=== PATIENT | female | born 1950 | race Caucasian/White ===

== ENCOUNTER 2019-09-22 13:04 | Emergency (ER) | payer MEDICARE, BC ==
[2019-09-22] MEDS ORDERED: Sodium Chloride 0.9% 10 ML Syringe FLUSH PRN (13:30)
--- NOTE | 2019-09-22 13:43 | EDM.PDOC ---
ED HPI GENERAL MEDICAL PROBLEM - General Chief Complaint: Cardiovascular Problem Stated Complaint: HEART FLUTTERING Time Seen by Provider: 09/22/19 13:18 Source of Information: Reports: Patient History Limitations: Reports: No Limitations - History of Present Illness INITIAL COMMENTS - FREE TEXT/NARRATIVE: Patient is a 69-year-old female who was sent to the ER from the walk-in clinic with complaints of chest palpitations. She states that her symptoms began upon waking this morning and continued throughout the morning. Symptoms were present when she arrived at the clinic, however upon arrival to ER the symptoms have resolved. She describes the sensation as a fluttering in her chest. If she takes a deep breath she is able to resolve the symptoms briefly but they did return. She had no shortness of breath or chest pain associated with this. She was not diaphoretic or dizzy. She states that she has had episodes like these quite frequently during the past, however they do not generally last this long. She has no history of A. fib or SC. She is on blood pressure medications , however she is not sure what medications she is on. She does have a history of hypothyroidism for which she takes medications. - Related Data Allergies Allergy/AdvReac Type Severity Reaction Status Date / Time azithromycin Allergy Severe Swelling Verified 09/22/19 13:21 diphenhydramine Allergy Severe Anxiety Verified 09/22/19 13:21 [From Benadryl] Past Medical History HEENT History: Reports: Cataract Cardiovascular History: Reports: High Cholesterol, Hypertension [employer] History: Reports: Oncologic (Cancer) History: Reports: Leukemia Other Oncologic History: bone marrow transplant - Past Surgical History HEENT Surgical History: Reports: Tonsillectomy Female Surgical History: Reports: Tubal Ligation Social & Family History - Tobacco Use Smoking Status *Q: Never Smoker Second Hand Smoke Exposure: No - Caffeine Use Caffeine Use: Reports: None - Recreational Drug Use Recreational Drug Use: No ED ROS GENERAL - Review of Systems Review Of Systems: See Below Constitutional: Reports: No Symptoms. Denies: Fever, Chills, Weakness HEENT: Reports: No Symptoms Respiratory: Reports: No Symptoms. Denies: Shortness of Breath, Cough Cardiovascular: Reports: Palpitations. Denies: Chest Pain, Dyspnea on Exertion , Edema, Lightheadedness, Syncope Endocrine: Reports: No Symptoms GI/Abdominal: Reports: No Symptoms : Reports: No Symptoms Musculoskeletal: Reports: No Symptoms Skin: Reports: No Symptoms Neurological: Reports: No Symptoms. Denies: Dizziness, Headache Psychiatric: Reports: No Symptoms Hematologic/Lymphatic: Reports: No Symptoms Immunologic: Reports: No Symptoms ED EXAM, GENERAL - Physical Exam Exam: See Below Exam Limited By: No Limitations General Appearance: Alert, WD/WN, No Apparent Distress Respiratory/Chest: No Respiratory Distress, Lungs Clear, Normal Breath Sounds, No Accessory Muscle Use, Chest Non-Tender Cardiovascular: Normal Peripheral Pulses, Regular Rate, Rhythm, No Edema, No Gallop, No JVD, No Murmur, No Rub GI/Abdominal: Normal Bowel Sounds, Soft, Non-Tender, No Organomegaly, No Distention, No Abnormal Bruit, No Mass Neurological: Alert, Oriented, CN II-XII Intact, Normal Cognition, Normal Gait, Normal Reflexes, No Motor/Sensory Deficits Psychiatric: Normal Affect, Normal Mood Skin Exam: Warm, Dry, Intact, Normal Color, No Rash EKG INTERPRETATION EKG Date: 09/22/19 Time: 13:45 Rhythm: NSR Rate (Beats/Min): 85 [place]: Normal P-Wave: Present (in V3. Not visible in other leads.) QRS: Normal ST-T: Normal QT: Normal Comparison: NA - No Prior EKG EKG Interpretation Comments: P wave visible in V3 P-wave not visible in other leads narrow complex regular rhythm, rate 85 presumed NSR EKG interpreted by Dr. Emerson Garcia MD. Course - Vital Signs Last Recorded V/S: Last Vital Signs Temp 98.1 F 09/22/19 13:16 Pulse 95 09/22/19 13:16 Resp 16 09/22/19 13:16 BP 168/85 H 09/22/19 13:16 Pulse Ox 99 09/22/19 13:16 - Orders/Labs/Meds Orders: Active Orders 24 hr Category Date Time Status EKG Documentation Completion [RC] STAT Care 09/22/19 13:29 Active Holter Monitor 48 Hours [RC] .PRN Care 09/22/19 15:37 Ordered Peripheral IV Care [RC] . DIRECTED Care 09/22/19 13:30 Active Chest 2V [CR] Stat Exams 09/22/19 13:30 Taken Sodium Chloride 0.9% [Saline Flush] Med 09/22/19 13:30 Active 10 ml FLUSH ASDIRECTED PRN Peripheral IV Insertion Adult [OM.PC] Stat Oth 09/22/19 13:30 Ordered Medication Orders Sodium Chloride (Saline Flush) 10 ml FLUSH ASDIRECTED PRN PRN Reason: Keep Vein Open Labs: Laboratory Tests 09/22/19 09/22/19 09/22/19 Range/Units 13:45 13:45 14:00 WBC 5.93 (3.98-10.04) K/mm3 RBC 3.76 L (3.98-5.22) M/mm3 Hgb 12.3 (11.2-15.7) gm/dl Hct 37.0 (34.1-44.9) % MCV 98.4 H (79.4-94.8) fl MCH 32.7 H (25.6-32.2) pg MCHC 33.2 (32.2-35.5) g/dl RDW Std Deviation 44.2 (36.4-46.3) fL Plt Count 146 L (182-369) K/mm3 MPV 9.8 (9.4-12.3) fl Neut % (Auto) 68.7 (34.0-71.1) % Lymph % (Auto) 18.5 L (19.3-51.7) % [place] % (Auto) 8.3 (4.7-12.5) % Eos % (Auto) 3.9 (0.7-5.8) Baso % (Auto) 0.3 (0.1-1.2) % Neut # (Auto) 4.07 (1.56-6.13) K/mm3 Lymph # (Auto) 1.10 L (1.18-3.74) K/mm3 [place] # (Auto) 0.49 H (0.24-0.36) K/mm3 Eos # (Auto) 0.23 (0.04-0.36) K/mm3 Baso # (Auto) 0.02 (0.01-0.08) K/mm3 Manual Slide Review Normal smear Sodium 133 L (136-145) mEq/L Potassium 3.7 (3.5-5.1) mEq/L Chloride 100 (98-107) mEq/L Carbon Dioxide 21 (21-32) mEq/L Anion Gap 15.7 H (5-15) BUN 27 H (7-18) mg/dL Creatinine 1.2 H (0.55-1.02) mg/dL Est Cr Clr Drug Dosing 39.81 mL/min Estimated GFR (MDRD) 45 (>60) mL/min BUN/Creatinine Ratio 22.5 H (14-18) Glucose 117 H (80-115) mg/dL Calcium 9.2 (8.5-10.1) mg/dL Total Bilirubin 0.5 (0.2-1.0) mg/dL AST 16 (15-37) U/L ALT 23 (14-59) U/L Alkaline Phosphatase 116 (46-116) U/L Troponin I < 0.017 (0.00-0.056) ng/mL Total Protein 7.3 (6.4-8.2) g/dl Albumin 3.6 (3.4-5.0) g/dl Globulin 3.7 gm/dL Albumin/Globulin Ratio 1.0 (1-2) Free T4 1.46 (0.76-1.46) ng/dL TSH 3rd Generation 1.301 (0.358-3.74) uIU/mL Urine Color Yellow (Yellow) Urine Appearance Clear (Clear) Urine pH 6.5 (5.0-8.0) Ur Specific [place] 1.015 (1.005-1.030) Urine Protein 2+ H (Negative) Urine Glucose (UA) Negative (Negative) Urine Ketones Negative (Negative) Urine Occult Blood Trace-lysed H (Negative) Urine Nitrite Negative (Negative) Urine Bilirubin Negative (Negative) Urine Urobilinogen 0.2 (0.2-1.0) Ur Leukocyte Esterase Negative (Negative) Urine RBC 0-5 (0-5) /hpf Urine WBC 0-5 (0-5) /hpf Ur Squamous Epith Cells 0-5 (0-5) /hpf Urine Bacteria Occasional (FEW) /hpf Urine Mucus Not seen (FEW) /hpf Meds: Medications Generic Name Dose Route Start Last Admin Trade Name Freq PRN Reason Stop Dose Admin Sodium Chloride 10 ml 09/22/19 13:30 Saline Flush FLUSH ASDIRECTED PRN Keep Vein Open - Re-Assessments/Exams Free Text/Narrative Re-Assessment/Exam: 09/22/19 15:41 Hematology was grossly unremarkable. Sodium was slightly low at 133, anion gap slightly elevated at 15.7, BUN 27, creatinine 1.2. Cardiac enzymes were negative. Thyroid was normal. Urinalysis was negative for any signs of infection. Discussed with the patient that she should try to slightly increase her fluid intake while incorporating electrolytes with beverages such as Gatorade or Powerade. Chest x-ray was normal. EKG was normal. No ectopy was noted while in the emergency department on court recording monitor. She had no further episodes of palpitations while in the emergency department. We will send her home on a 48-hour Holter monitor with instructions to follow-up with her primary care provider Departure - Departure Time of Disposition: 15:41 Disposition: Home, Self-Care 01 Condition: Good Clinical Impression: Palpitations Instructions: Palpitations, [id number] Referrals: Pernell Enrique MD [Primary Care Provider] - Forms: ED Department Discharge Additional Instructions: You were seen in the emergency department today for an occurrence of palpitations at home. Work-up included blood work, urinalysis, EKG of your heart, and a chest x-ray. These were found to be overall normal. As we discussed, it would be beneficial for you to slightly increase your fluid intake while incorporating electrolytes with drinks such as Gatorade, Powerade, or propel. You have been sent home on a 48-hour Holter monitor. Return this on Tuesday. Recommend that you call to schedule follow-up appointment with your primary care provider for either late next week or early the following week. If you should experience any new or worsening symptoms of concern, please do not hesitate to return to the emergency department. Sepsis Event Note - Evaluation Sepsis Screening Result: No Definite Risk - Focused Exam Vital Signs: Vital Signs Temp Pulse Resp BP Pulse Ox 09/22/19 13:16 98.1 F 95 16 168/85 H 99 Date Exam was Performed: 09/22/19 Time Exam was Performed: 15:39 - My Orders Last 24 Hours: My Active Orders 09/22/19 13:29 EKG Documentation Completion [RC] STAT 09/22/19 13:30 Peripheral IV Care [RC] . DIRECTED Chest 2V [CR] Stat Sodium Chloride 0.9% [Saline Flush] 10 ml FLUSH ASDIRECTED PRN Peripheral IV Insertion Adult [OM.PC] Stat 09/22/19 15:37 Holter Monitor 48 Hours [RC] .PRN - Assessment/Plan Last 24 Hours: My Active Orders 09/22/19 13:29 EKG Documentation Completion [RC] STAT 09/22/19 13:30 Peripheral IV Care [RC] . DIRECTED Chest 2V [CR] Stat Sodium Chloride 0.9% [Saline Flush] 10 ml FLUSH ASDIRECTED PRN Peripheral IV Insertion Adult [OM.PC] Stat 09/22/19 15:37 Holter Monitor 48 Hours [RC] .PRN
--- NOTE | 2019-09-23 10:27 | CR ---
Chest: 2 views of the chest were obtained. Comparison: No prior chest imaging is available. Heart size and mediastinum are normal. Lungs are clear with no acute parenchymal change. Slight degenerative change is scattered within the spine. Impression: 1. Nothing acute is seen on 2 view chest x-ray. Diagnostic code #2 This report was dictated in MDT
== END 2019-09-22 16:05 | disposition home or self-care (01) ==
LOC: JD.ED 13:04
DX: R00.2 Palpitations (principal); E78.00 Pure hypercholesterolemia, unspecified; I10 Essential (primary) hypertension; Z88.8 Allergy status to other drugs, medicaments and biological substances
CPT/HCPCS: 36415; 71046; 71046-26; 80053; 81001; 84439; 84443; 84484; 85025; 93005; 93010; 93225; 93226; 99283; 99285-25

== ENCOUNTER 2022-08-23 08:20 | Day surgery (SDC) | payer MEDICARE, BC ==
[~2022-08-23 08:20] MED LIST: Lactated Ringers 1,000 ML IV SCH; Lidocaine 1%/Sod Bicarbonate in NS 8.4% 1 ML Syringe IDERM PRN; Sodium Chloride 0.9% 10 ML Syringe FLUSH PRN; Sodium Chloride 0.9% 10 ML Syringe FLUSH SCH
[2022-08-23] MEDS ORDERED: Midazolam 1 MG/ML 2 ML SDV ONE (09:21)
[2022-08-23] MEDS ORDERED: fentaNYL 100 MCG/2 ML SDV ONE (09:21)
[2022-08-23] MEDS ORDERED: Lidocaine 1% 2 ML ONE (09:21)
[2022-08-23] MEDS ORDERED: Propofol 200 MG/20 ML SDV ONE ×2 (09:21→10:11)
[2022-08-23] MEDS ORDERED: Ondansetron 4 MG/2 ML SDV IVPUSH PRN (09:43)
== END 2022-08-23 11:35 | disposition home or self-care (01) ==
LOC: JD.SDS 08:20
PROVIDERS: ATTEND Surgery
DX: Z12.11 Encounter for screening for malignant neoplasm of colon (principal); D12.7 Benign neoplasm of rectosigmoid junction; D12.2 Benign neoplasm of ascending colon; D12.4 Benign neoplasm of descending colon; D12.0 Benign neoplasm of cecum; D12.5 Benign neoplasm of sigmoid colon; D12.3 Benign neoplasm of transverse colon; K63.5 Polyp of colon; K62.1 Rectal polyp; E03.9 Hypothyroidism, unspecified; I12.9 Hypertensive chronic kidney disease with stage 1 through stage 4 chronic kidney disease, or unspecified chronic kidney disease; N18.30 Chronic kidney disease, stage 3 unspecified; E78.5 Hyperlipidemia, unspecified; E11.9 Type 2 diabetes mellitus without complications; F41.9 Anxiety disorder, unspecified; F32.A Depression, unspecified; D46.9 Myelodysplastic syndrome, unspecified; K21.00 Gastro-esophageal reflux disease with esophagitis, without bleeding; Z90.89 Acquired absence of other organs; Z79.84 Long term (current) use of oral hypoglycemic drugs; Z79.4 Long term (current) use of insulin; Z79.899 Other long term (current) drug therapy; Z88.1 Allergy status to other antibiotic agents; Z88.8 Allergy status to other drugs, medicaments and biological substances; Z86.16 Personal history of COVID-19
CPT/HCPCS: 45380; 82947; 88305; J2250; J2704; J3010; J7120; 00811; 99100; J3490

== ENCOUNTER 2023-04-25 17:57 | Inpatient (IN) | payer MEDICARE, BC ==
[2023-04-25] MEDS ORDERED: Sodium Chloride 0.9% 10 ML Syringe FLUSH PRN (18:47)
[2023-04-25 19:16] LABS: EOSINOPHILS PERCENT AUTO 2.4 % (0.0-6.0); HEMATOCRIT 22.3 % (37.0-47.0); HEMOGLOBIN 7.7 gm/dl (12.0-16.0); IMMATURE GRAN ABSOLUTE AUTO 0.01 K/mm3 (0.00-0.05); IMMATURE GRAN PERCENT AUTO 2.4 % (0.0-0.4); LYMPHOCYTES ABSOLUTE AUTO 0.3 K/mm3 (1.0-4.8); LYMPHOCYTES PERCENT AUTO 64.3 % (24.0-44.0); MEAN CORPUSCULAR HEMOGLOBIN 33.8 pg (28.0-32.0); MEAN CORPUSCULAR HGB CONC 34.5 g/dl (32.0-36.0); MEAN CORPUSCULAR VOLUME 97.8 fl (83.0-99.0); MEAN PLATELET VOLUME 11.3 fl (9.4-12.3); MONOCYTES PERCENT AUTO 2.4 % (0.0-8.0); NEUTROPHILS ABSOLUTE AUTO 0.1 K/mm3 (1.8-7.7); NEUTROPHILS PERCENT AUTO 28.5 % (41.0-71.0); RED BLOOD CELL COUNT 2.28 M/mm3 (4.10-5.30)
[2023-04-25 19:20] LABS: WHITE BLOOD CELL COUNT,WBC 0.42 K/mm3 (3.9-11.3)
[2023-04-25 19:21] LABS: PLATELET COUNT,PLT 15 K/mm3 (150-400)
[2023-04-25 19:53] LABS: SLIDE REVIEW ABNORMAL SMEAR
[2023-04-25 19:54] LABS: APPEARANCE,URINE CLEAR (Clear); BILIRUBIN,URINE NEGATIVE (Negative); COLOR,URINE YELLOW (Yellow); GLUCOSE,URINE 2+ (Negative); KETONES,URINE NEGATIVE (Negative); LEUKOCYTE ESTERASE,URINE NEGATIVE (Negative); NITRITE,URINE NEGATIVE (Negative); OCCULT BLOOD,URINE 1+ (Negative); PROTEIN,URINE 1+ (Negative)
[2023-04-25 19:57] LABS: A/G RATIO 0.9 (1-2); ALANINE AMINOTRANSFERASE,ALT 19 U/L (14-59); ALBUMIN 3.2 g/dl (3.4-5.0); ALKALINE PHOSPHATASE 86 U/L (46-116); ANION GAP 14.4 (5-15); ASPARTATE AMNIOTRANSFERASE,AST 12 U/L (15-37); BILIRUBIN TOTAL 0.8 mg/dL (0.2-1.0); BLOOD UREA NITROGEN,BUN 36 mg/dL (7-18); CALCIUM 9.1 mg/dL (8.5-10.1); CARBON DIOXIDE,CO2 22 mEq/L (21-32); CHLORIDE,CL 100 mEq/L (98-107); CREATININE 1.8 mg/dL (0.55-1.02); ESTIMATED GFR 30 mL/min (>60); GLUCOSE RANDOM 198 mg/dL (70-99); PROTEIN TOTAL,TP 6.7 g/dl (6.4-8.2); SODIUM,NA 132 mEq/L (136-145)
[2023-04-25] MEDS ORDERED: cefTRIAXone 2 GM in Sodium Chloride 0.9% 100 ML IV ONE (19:58)
[2023-04-25 20:01] LABS: CORONAVIRUS COVID-19 NAA POSITIVE (NEGATIVE); INFLUENZA A NAA NEGATIVE (NEGATIVE); RESPIRATORY SYNCYTIAL VIR NAA NEGATIVE (NEGATIVE)
[2023-04-25 20:04] LABS: POTASSIUM,K 4.4 mEq/L (3.5-5.1)
[2023-04-25 20:08] LABS: BACTERIA,URINE RARE /hpf (FEW); MUCUS,URINE NOT SEEN /hpf (FEW); RBC,URINE 0-5 /hpf (0-5); SQUAMOUS EPITHELIAL CELLS,UR NOT SEEN /hpf (0-5); WBC,URINE NOT SEEN /hpf (0-5)
[2023-04-25] MEDS: Acetaminophen 325 MG Tab PO ONE (20:44)
[2023-04-25] MEDS ORDERED: Nirmatrelvir/Ritonavir 150 MG/100 MG Dose Pack PO SCH (21:00)
[2023-04-25] MEDS: Cefepime 2 GM in Sodium Chloride 0.9% 50 ML IV SCH (21:22)
[2023-04-25] MEDS ORDERED: Acetaminophen 325 MG Tab PO PRN (23:21)
[2023-04-26 05:42] LABS: HEMATOCRIT 20.5 % (37.0-47.0); MEAN CORPUSCULAR HEMOGLOBIN 32.7 pg (28.0-32.0); MEAN CORPUSCULAR HGB CONC 34.6 g/dl (32.0-36.0); MEAN CORPUSCULAR VOLUME 94.5 fl (83.0-99.0); RED BLOOD CELL COUNT 2.17 M/mm3 (4.10-5.30)
[2023-04-26 05:54] LABS: WHITE BLOOD CELL COUNT,WBC 0.44 K/mm3 (3.9-11.3)
[2023-04-26 05:55] LABS: HEMOGLOBIN 7.1 gm/dl (12.0-16.0); PLATELET COUNT,PLT 8 K/mm3 (150-400)
[2023-04-26 06:09] LABS: A/G RATIO 0.8 (1-2); ALBUMIN 2.8 g/dl (3.4-5.0); ANION GAP 16.1 (5-15); BILIRUBIN TOTAL 0.6 mg/dL (0.2-1.0); BUN/CREATININE RATIO 18.8 (14-18); CALCIUM 8.9 mg/dL (8.5-10.1); CREATININE 1.6 mg/dL (0.55-1.02); EST CRCL DRUG DOSING (CG) 26.29 mL/min; POTASSIUM,K 4.1 mEq/L (3.5-5.1); PROTEIN TOTAL,TP 6.3 g/dl (6.4-8.2)
[2023-04-26] MEDS ORDERED: ESTRADIOL TOP SCH (06:30)
[2023-04-26] MEDS: Cefepime 2 GM in Sodium Chloride 0.9% 50 ML IV SCH ×2 (08:56→22:20)
[2023-04-26] MEDS: Verapamil 120 MG Cap.ER PO SCH (08:56)
[2023-04-26] MEDS: Allopurinol 100 MG Tab PO SCH (08:57)
[2023-04-26] MEDS: Losartan 50 MG Tab PO SCH (08:58)
[2023-04-26] MEDS: Fluticasone NASAL Spray 16 GM Bottle NASBOTH SCH (08:58)
[2023-04-26] MEDS: Cholecalciferol (Vitamin D3) 25 MCG Tab PO SCH (08:58)
[2023-04-26] MEDS: Empagliflozin 10 MG Tab PO SCH (08:58)
[2023-04-26] MEDS: Sodium Bicarbonate 650 MG Tab PO SCH ×2 (08:58→22:19)
[2023-04-26] MEDS: Timolol Maleate 0.5% Ophth Soln 5 ML Bottle EYERT SCH (08:59)
[2023-04-26] MEDS ORDERED: Nirmatrelvir/Ritonavir 150 MG/100 MG Dose Pack PO SCH (09:00)
[2023-04-26] MEDS ORDERED: atorvaSTATin 40 MG Tab PO SCH (09:00)
[2023-04-26] MEDS ORDERED: Non-Formulary Medication 1 Each (Triamcinolone Acetonide [Nasacort] 10.8 ML Spray) NAS SCH (09:00)
[2023-04-26] MEDS ORDERED: Famotidine 20 MG/2 ML SDV IVPUSH ONE (17:50)
[2023-04-26] MEDS ORDERED: methylPREDNISolone Sodium Succinate 125 MG/2 ML SDV IVPUSH ONE (17:52)
[2023-04-26] MEDS: Acetaminophen 325 MG Tab PO ONE (19:24)
[2023-04-26] MEDS ORDERED: Sodium Chloride 0.9% 100 ML ONE (20:39)
[2023-04-26] MEDS ORDERED: Sodium Chloride 0.9% 100 ML IV SCH (20:45)
[2023-04-26] MEDS: Sodium Chloride 0.9% 100 ML IV SCH (21:24)
[2023-04-27] MEDS: Sodium Chloride 0.9% 100 ML IV SCH (00:29)
[2023-04-27] MEDS: Cefepime 2 GM in Sodium Chloride 0.9% 50 ML IV SCH (00:30)
[2023-04-27] MEDS ORDERED: Acetaminophen 325 MG Tab PO ONE ×2 (02:30→11:45)
[2023-04-27] MEDS ORDERED: Famotidine 20 MG/2 ML SDV IVPUSH ONE (02:30)
[2023-04-27] MEDS ORDERED: methylPREDNISolone Sodium Succinate 125 MG/2 ML SDV IVPUSH ONE ×2 (02:30→11:45)
[2023-04-27] MEDS ORDERED: Sodium Chloride 0.9% 250 ML ONE ×2 (03:13→14:09)
[2023-04-27] MEDS: Levothyroxine 112 MCG Tab PO SCH (07:01)
[2023-04-27] MEDS: Levothyroxine 25 MCG Tab PO SCH (07:01)
[2023-04-27] MEDS: Allopurinol 100 MG Tab PO SCH (08:18)
[2023-04-27] MEDS: Cholecalciferol (Vitamin D3) 25 MCG Tab PO SCH (08:19)
[2023-04-27] MEDS: Verapamil 120 MG Cap.ER PO SCH (08:19)
[2023-04-27] MEDS: Empagliflozin 10 MG Tab PO SCH (08:20)
[2023-04-27] MEDS: Losartan 50 MG Tab PO SCH (08:20)
[2023-04-27] MEDS: Timolol Maleate 0.5% Ophth Soln 5 ML Bottle EYERT SCH (08:21)
[2023-04-27] MEDS: Fluticasone NASAL Spray 16 GM Bottle NASBOTH SCH (08:21)
[2023-04-27] MEDS: Sodium Bicarbonate 650 MG Tab PO SCH ×2 (08:21→20:24)
[2023-04-27] MEDS ORDERED: Furosemide 20 MG/2 ML VIAL IVPUSH ONE (08:39)
[2023-04-27] MEDS ORDERED: Cefepime 2 GM in Sodium Chloride 0.9% 50 ML IV SCH (12:00)
[2023-04-27] MEDS ORDERED: Insulin Regular, Human 100 Units/ML 3 ML Vial SUBCUT ONE (12:26)
[2023-04-27] MEDS: Insulin Regular, Human 100 Units/ML 3 ML Vial SUBCUT SCH ×3 (12:36→18:12)
[2023-04-27] MEDS ORDERED: Polyethylene Glycol 3350 Powder 17 GM Packet PO PRN (15:17)
[2023-04-27 16:44] LABS: HEMATOCRIT 34.5 % (37.0-47.0); HEMOGLOBIN 12.2 gm/dl (12.0-16.0); LYMPHOCYTES ABSOLUTE AUTO 0.2 K/mm3 (1.0-4.8); LYMPHOCYTES PERCENT AUTO 55.6 % (24.0-44.0); MEAN CORPUSCULAR HEMOGLOBIN 30.5 pg (28.0-32.0); MEAN CORPUSCULAR HGB CONC 35.4 g/dl (32.0-36.0); MEAN CORPUSCULAR VOLUME 86.3 fl (83.0-99.0); MEAN PLATELET VOLUME 9.7 fl (9.4-12.3); NEUTROPHILS ABSOLUTE AUTO 0.1 K/mm3 (1.8-7.7); NEUTROPHILS PERCENT AUTO 44.4 % (41.0-71.0); PLATELET COUNT,PLT 185 K/mm3 (150-400)
[2023-04-27 16:48] LABS: WHITE BLOOD CELL COUNT,WBC 0.27 K/mm3 (3.9-11.3)
[2023-04-27 17:06] LABS: A/G RATIO 0.7 (1-2); ALBUMIN 3.4 g/dl (3.4-5.0); ANION GAP 17.8 (5-15); BILIRUBIN TOTAL 1.4 mg/dL (0.2-1.0); BUN/CREATININE RATIO 19.1 (14-18); CALCIUM 9.9 mg/dL (8.5-10.1); CREATININE 2.2 mg/dL (0.55-1.02); EST CRCL DRUG DOSING (CG) 19.12 mL/min; POTASSIUM,K 3.8 mEq/L (3.5-5.1); PROTEIN TOTAL,TP 8.1 g/dl (6.4-8.2)
[2023-04-27 18:14] LABS: SLIDE REVIEW ABNORMAL SMEAR
[2023-04-27] MEDS: Cefepime 1 GM in Sodium Chloride 0.9% 50 ML IV SCH (22:18)
[2023-04-28 05:41] LABS: HEMATOCRIT 34.3 % (37.0-47.0); HEMOGLOBIN 12.2 gm/dl (12.0-16.0); IMMATURE GRAN ABSOLUTE AUTO 0.03 K/mm3 (0.00-0.05); IMMATURE GRAN PERCENT AUTO 8.6 % (0.0-0.4); LYMPHOCYTES ABSOLUTE AUTO 0.2 K/mm3 (1.0-4.8); LYMPHOCYTES PERCENT AUTO 57.1 % (24.0-44.0); MEAN CORPUSCULAR HEMOGLOBIN 30.7 pg (28.0-32.0); MEAN CORPUSCULAR HGB CONC 35.6 g/dl (32.0-36.0); MEAN CORPUSCULAR VOLUME 86.2 fl (83.0-99.0); MEAN PLATELET VOLUME 9.6 fl (9.4-12.3); MONOCYTES PERCENT AUTO 2.9 % (0.0-8.0); NEUTROPHILS ABSOLUTE AUTO 0.1 K/mm3 (1.8-7.7); NEUTROPHILS PERCENT AUTO 31.4 % (41.0-71.0); PLATELET COUNT,PLT 164 K/mm3 (150-400); RED BLOOD CELL COUNT 3.98 M/mm3 (4.10-5.30)
[2023-04-28 05:53] LABS: A/G RATIO 0.8 (1-2); ALBUMIN 3.3 g/dl (3.4-5.0); ANION GAP 18.8 (5-15); BILIRUBIN TOTAL 1.1 mg/dL (0.2-1.0); BUN/CREATININE RATIO 27.6 (14-18); CALCIUM 9.6 mg/dL (8.5-10.1); CREATININE 1.7 mg/dL (0.55-1.02); EST CRCL DRUG DOSING (CG) 24.74 mL/min; POTASSIUM,K 3.8 mEq/L (3.5-5.1); PROTEIN TOTAL,TP 7.6 g/dl (6.4-8.2)
[2023-04-28 06:27] LABS: WHITE BLOOD CELL COUNT,WBC 0.35 K/mm3 (3.9-11.3)
[2023-04-28] MEDS: Levothyroxine 25 MCG Tab PO SCH (06:46)
[2023-04-28] MEDS: Levothyroxine 112 MCG Tab PO SCH (06:46)
[2023-04-28 07:48] LABS: SLIDE REVIEW ABNORMAL SMEAR
[2023-04-28] MEDS: Timolol Maleate 0.5% Ophth Soln 5 ML Bottle EYERT SCH (08:27)
[2023-04-28] MEDS: Fluticasone NASAL Spray 16 GM Bottle NASBOTH SCH (08:27)
[2023-04-28] MEDS: Verapamil 120 MG Cap.ER PO SCH (08:28)
[2023-04-28] MEDS: Sodium Bicarbonate 650 MG Tab PO SCH (08:28)
[2023-04-28] MEDS: Allopurinol 100 MG Tab PO SCH (08:34)
[2023-04-28] MEDS: Losartan 50 MG Tab PO SCH (08:34)
[2023-04-28] MEDS: Cholecalciferol (Vitamin D3) 25 MCG Tab PO SCH (08:34)
[2023-04-28] MEDS: Insulin Regular, Human 100 Units/ML 3 ML Vial SUBCUT SCH ×2 (08:40→13:10)
[2023-04-28] MEDS: Cefepime 1 GM in Sodium Chloride 0.9% 50 ML IV SCH (11:40)
== END 2023-04-28 13:27 | disposition home or self-care (01) | DRG 808 ==
LOC: JD.ED 17:57 → JD.MS 21:04
PROVIDERS: ADMIT Internal Medicine; ATTEND Internal Medicine
PROC: 30233N1 Transfusion of Nonautologous Red Blood Cells into Peripheral Vein, Percutaneous Approach (ICD-10-PCS; 2023-04-26)
PROC: 30233R1 Transfusion of Nonautologous Platelets into Peripheral Vein, Percutaneous Approach (ICD-10-PCS; principal; 2023-04-27)
PROC: 30233N1 Transfusion of Nonautologous Red Blood Cells into Peripheral Vein, Percutaneous Approach (ICD-10-PCS; 2023-04-27)
DX: D70.1 Agranulocytosis secondary to cancer chemotherapy (principal); U07.1 COVID-19; N39.0 Urinary tract infection, site not specified; Z94.81 Bone marrow transplant status; D61.818 Other pancytopenia; D46.9 Myelodysplastic syndrome, unspecified; T45.1X5A Adverse effect of antineoplastic and immunosuppressive drugs, initial encounter; K21.9 Gastro-esophageal reflux disease without esophagitis; D70.9 Neutropenia, unspecified; R50.81 Fever presenting with conditions classified elsewhere; E78.00 Pure hypercholesterolemia, unspecified; F41.9 Anxiety disorder, unspecified; F32.A Depression, unspecified; I12.9 Hypertensive chronic kidney disease with stage 1 through stage 4 chronic kidney disease, or unspecified chronic kidney disease; N18.30 Chronic kidney disease, stage 3 unspecified; E11.22 Type 2 diabetes mellitus with diabetic chronic kidney disease; D69.6 Thrombocytopenia, unspecified; E03.9 Hypothyroidism, unspecified; Z88.1 Allergy status to other antibiotic agents; Z88.8 Allergy status to other drugs, medicaments and biological substances; Z79.4 Long term (current) use of insulin; Z90.89 Acquired absence of other organs; Z98.51 Tubal ligation status; Z79.899 Other long term (current) drug therapy
CPT/HCPCS: 0241U; 36415; 36430; 71045; 80053; 81001; 82947; 83605; 85025; 85027; 86850; 86900; 86901; 86922; 87040; 87086; 96365; 99285-25; A9270-GY; C1758; J0692; J0696; J1815-GY; J1940; J2930; J3490; J7050; P9016; P9034; P9040

== ENCOUNTER 2023-05-22 18:48 | Inpatient (IN) | payer MEDICARE, BC ==
[2023-05-22] MEDS ORDERED: Metoclopramide 10 MG/2 ML SDV IVPUSH ONE (19:06)
[2023-05-22] MEDS ORDERED: Acetaminophen 325 MG Tab PO ONE (19:10)
[2023-05-22] MEDS ORDERED: Sodium Chloride 0.9% 1,000 ML IV SCH (19:15)
[2023-05-22] MEDS ORDERED: cefTRIAXone 2 GM in Sodium Chloride 0.9% 100 ML IV ONE (19:32)
[2023-05-22 20:10] LABS: INR 0.99; PROTHROMBIN TIME 10.6 SECONDS (9.7-12.0)
[2023-05-22 20:12] LABS: PTT,PARTIAL THROMBOPLSTIN TIME 22.1 SECONDS (21.7-31.4)
[2023-05-22 20:17] LABS: MEAN CORPUSCULAR HGB CONC 34.8 g/dl (32.0-36.0); MEAN CORPUSCULAR VOLUME 89.1 fl (83.0-99.0); MEAN PLATELET VOLUME 9.9 fl (9.4-12.3); RED BLOOD CELL COUNT 2.58 M/mm3 (4.10-5.30)
[2023-05-22 20:21] LABS: PLATELET COUNT,PLT 22 K/mm3 (150-400)
[2023-05-22 20:23] LABS: A/G RATIO 0.8 (1-2); ALBUMIN 3.1 g/dl (3.4-5.0); ANION GAP 16.7 (5-15); BILIRUBIN TOTAL 1.1 mg/dL (0.2-1.0); BUN/CREATININE RATIO 24.7 (14-18); C-REACTIVE PROTEIN 4.4 mg/dL (<1.0); CALCIUM 8.9 mg/dL (8.5-10.1); CREATININE 1.7 mg/dL (0.55-1.02); EST CRCL DRUG DOSING (CG) 24.74 mL/min; MAGNESIUM 1.3 mg/dL (1.8-2.4); POTASSIUM,K 3.7 mEq/L (3.5-5.1); PROTEIN TOTAL,TP 6.9 g/dl (6.4-8.2); TSH 0.598 uIU/mL (0.358-3.74)
[2023-05-22] MEDS ORDERED: Morphine 2 MG/ML SYRINGE IVPUSH PRN (20:25)
[2023-05-22] MEDS ORDERED: Acetaminophen/HYDROcodone 325-5 MG Tab PO PRN (20:25)
[2023-05-22] MEDS ORDERED: Ondansetron 4 MG/2 ML SDV IV PRN (20:25)
[2023-05-22 20:31] LABS: HEMOGLOBIN A1C 9.1 %
[2023-05-22] MEDS ORDERED: Piperacillin/Tazobactam 4.5 GM in Sodium Chloride 0.9% 100 ML IV ONE (20:45)
[2023-05-22] MEDS ORDERED: Magnesium Sulfate/Water 4 GM in Premix Bag 1 BAG IV ONE (20:49)
[2023-05-22 20:50] LABS: APPEARANCE,URINE CLEAR (Clear); BILIRUBIN,URINE NEGATIVE (Negative); COLOR,URINE YELLOW (Yellow); GLUCOSE,URINE NEGATIVE (Negative); KETONES,URINE NEGATIVE (Negative); LEUKOCYTE ESTERASE,URINE NEGATIVE (Negative); NITRITE,URINE NEGATIVE (Negative); OCCULT BLOOD,URINE TRACE-INTACT (Negative); PROTEIN,URINE 2+ (Negative); UROBILINOGEN,URINE 0.2 (0.2-1.0)
[2023-05-22 21:05] LABS: BAND PERCENT MAN 0 % (0-10); BASOPHILS PERCENT MAN 0 (0.1-1.2); EOSINOPHILS PERCENT MAN 0 % (0.7-5.8); LYMPHOCYTES % ATYPICAL MANUAL 0 %; LYMPHOCYTES PERCENT MAN 60 % (20-40); MONOCYTES PERCENT MAN 20 % (2-10)
[2023-05-22 21:06] LABS: OVALOCYTES 1+ SLIGHT; PLATELET COUNT ESTIMATE DECREASED; POIKILOCYTOSIS 1+ SLIGHT
[2023-05-22 21:13] LABS: SQUAMOUS EPITHELIAL CELLS,UR 0-5 /hpf (0-5); WBC,URINE 0-5 /hpf (0-5)
[2023-05-22 21:14] LABS: BACTERIA,URINE FEW /hpf (FEW); MUCUS,URINE FEW /hpf (FEW)
[2023-05-22 22:15] LABS: CORONAVIRUS COVID-19 NAA POSITIVE (NEGATIVE); INFLUENZA A NAA NEGATIVE (NEGATIVE); RESPIRATORY SYNCYTIAL VIR NAA NEGATIVE (NEGATIVE)
[2023-05-23] MEDS ORDERED: Magnesium Sulfate/Water 4 GM in Premix Bag 1 BAG IV ONE (00:30)
[2023-05-23] MEDS: Sodium Chloride 0.9% 1,000 ML IV SCH ×2 (00:43→15:01)
[2023-05-23] MEDS: Piperacillin/Tazobactam 4.5 GM in Sodium Chloride 0.9% 100 ML IV SCH ×3 (03:47→18:33)
[2023-05-23 05:48] LABS: ANION GAP 17.8 (5-15); BUN/CREATININE RATIO 24.3 (14-18); CALCIUM 8.4 mg/dL (8.5-10.1); CREATININE 1.4 mg/dL (0.55-1.02); EST CRCL DRUG DOSING (CG) 30.05 mL/min; POTASSIUM,K 3.8 mEq/L (3.5-5.1)
[2023-05-23 05:59] LABS: HEMATOCRIT 21.4 % (37.0-47.0); HEMOGLOBIN 7.5 gm/dl (12.0-16.0); LYMPHOCYTES ABSOLUTE AUTO 0.1 K/mm3 (1.0-4.8); LYMPHOCYTES PERCENT AUTO 92.3 % (24.0-44.0); MEAN PLATELET VOLUME 9.8 fl (9.4-12.3); MONOCYTES PERCENT AUTO 7.7 % (0.0-8.0)
[2023-05-23] MEDS: Acetaminophen 325 MG Tab PO PRN ×2 (06:01→12:13)
[2023-05-23 06:08] LABS: WHITE BLOOD CELL COUNT,WBC 0.13 K/mm3 (3.9-11.3)
[2023-05-23 06:09] LABS: MEAN CORPUSCULAR VOLUME 85.6 fl (83.0-99.0); PLATELET COUNT,PLT 13 K/mm3 (150-400)
[2023-05-23] MEDS: Insulin Lispro 100 Unit/ML 3 ML KwikPen SUBCUT SCH ×4 (06:26→21:15)
[2023-05-23 07:35] LABS: SLIDE REVIEW ABNORMAL SMEAR
[2023-05-23] MEDS ORDERED: Acetaminophen 325 MG Tab PO ONE (09:00)
[2023-05-23] MEDS ORDERED: methylPREDNISolone Sodium Succinate 40 MG/1 ML SDV IVPUSH ONE (09:00)
[2023-05-23] MEDS: atorvaSTATin 40 MG Tab PO SCH (13:23)
[2023-05-23] MEDS: Levothyroxine 112 MCG Tab PO SCH (13:24)
[2023-05-23] MEDS: Sodium Bicarbonate 650 MG Tab PO SCH ×2 (13:24→21:14)
[2023-05-23] MEDS: Levothyroxine 25 MCG Tab PO SCH (13:24)
[2023-05-23] MEDS: Cholecalciferol (Vitamin D3) 25 MCG Tab PO SCH (13:24)
[2023-05-23] MEDS ORDERED: Sodium Chloride 0.9% 250 ML IV SCH (14:15)
[2023-05-23] MEDS ORDERED: Famotidine 10 MG Tab PO ONE (14:46)
[2023-05-23] MEDS ORDERED: REMDESIVIR 200 MG in Sodium Chloride 0.9% 250 ML IV ONE (16:00)
[2023-05-23] MEDS: Sodium Chloride 0.9% 10 ML Syringe IV SCH (17:36)
[2023-05-23] MEDS ORDERED: Sodium Chloride 0.9% 100 ML ONE (18:26)
[2023-05-23] MEDS: Insulin Glargine,Human Rec. Analog 100 Units/ML 3 ML Pen SUBCUT SCH (21:18)
[2023-05-24] MEDS: Piperacillin/Tazobactam 4.5 GM in Sodium Chloride 0.9% 100 ML IV SCH ×3 (03:19→18:01)
[2023-05-24] MEDS: Sodium Chloride 0.9% 1,000 ML IV SCH ×2 (03:23→16:24)
[2023-05-24] MEDS: Levothyroxine 112 MCG Tab PO SCH (06:31)
[2023-05-24] MEDS: Levothyroxine 25 MCG Tab PO SCH (06:31)
[2023-05-24 07:32] LABS: LYMPHOCYTES ABSOLUTE AUTO 0.1 K/mm3 (1.0-4.8); MEAN CORPUSCULAR HEMOGLOBIN 30.5 pg (28.0-32.0); MEAN CORPUSCULAR HGB CONC 34.5 g/dl (32.0-36.0); MEAN CORPUSCULAR VOLUME 88.5 fl (83.0-99.0); MEAN PLATELET VOLUME 10.6 fl (9.4-12.3); PLATELET COUNT,PLT 31 K/mm3 (150-400); RED BLOOD CELL COUNT 2.26 M/mm3 (4.10-5.30)
[2023-05-24 07:39] LABS: WHITE BLOOD CELL COUNT,WBC 0.08 K/mm3 (3.9-11.3)
[2023-05-24 07:40] LABS: HEMOGLOBIN 6.9 gm/dl (12.0-16.0)
[2023-05-24 07:41] LABS: BUN/CREATININE RATIO 17.1 (14-18); CALCIUM 8.3 mg/dL (8.5-10.1); CREATININE 1.4 mg/dL (0.55-1.02); EST CRCL DRUG DOSING (CG) 30.05 mL/min
[2023-05-24] MEDS: atorvaSTATin 40 MG Tab PO SCH (08:44)
[2023-05-24 08:45] LABS: SLIDE REVIEW ABNORMAL SMEAR
[2023-05-24] MEDS: Sodium Bicarbonate 650 MG Tab PO SCH ×2 (08:45→20:03)
[2023-05-24] MEDS: Cholecalciferol (Vitamin D3) 25 MCG Tab PO SCH (08:46)
[2023-05-24] MEDS: Insulin Lispro 100 Unit/ML 3 ML KwikPen SUBCUT SCH ×6 (09:07→21:02)
[2023-05-24] MEDS: REMDESIVIR 100 MG in Sodium Chloride 0.9% 250 ML IV SCH (15:13)
[2023-05-24] MEDS: Sodium Chloride 0.9% 10 ML Syringe IV SCH (17:01)
[2023-05-24] MEDS ORDERED: Aluminum Hydroxide/Magnesium Hydroxide/Simethicone Susp 30 ML Cup PO PRN (19:47)
[2023-05-24] MEDS: Loperamide 2 MG Cap PO PRN (20:03)
[2023-05-24] MEDS: Insulin Glargine,Human Rec. Analog 100 Units/ML 3 ML Pen SUBCUT SCH (20:58)
[2023-05-24] MEDS: Acetaminophen 325 MG Tab PO PRN (21:05)
[2023-05-24] MEDS ORDERED: Labetalol 100 MG/20 ML MDV IVPUSH PRN ×2 (21:56→22:39)
[2023-05-24 22:17] LABS: HEMATOCRIT 21.7 % (37.0-47.0); HEMOGLOBIN 7.7 gm/dl (12.0-16.0); LYMPHOCYTES ABSOLUTE AUTO 0.3 K/mm3 (1.0-4.8); LYMPHOCYTES PERCENT AUTO 96.2 % (24.0-44.0); MEAN CORPUSCULAR HEMOGLOBIN 30.6 pg (28.0-32.0); MEAN CORPUSCULAR HGB CONC 35.5 g/dl (32.0-36.0); MEAN CORPUSCULAR VOLUME 86.1 fl (83.0-99.0); MEAN PLATELET VOLUME 9.6 fl (9.4-12.3); NEUTROPHILS PERCENT AUTO 3.8 % (41.0-71.0); RED BLOOD CELL COUNT 2.52 M/mm3 (4.10-5.30)
[2023-05-24 22:30] LABS: PLATELET COUNT,PLT 23 K/mm3 (150-400); WHITE BLOOD CELL COUNT,WBC 0.26 K/mm3 (3.9-11.3)
[2023-05-24 23:19] LABS: SLIDE REVIEW ABNORMAL SMEAR
[2023-05-25] MEDS: Piperacillin/Tazobactam 4.5 GM in Sodium Chloride 0.9% 100 ML IV SCH ×2 (03:09→10:14)
[2023-05-25 05:45] LABS: ANION GAP 14.3 (5-15); BUN/CREATININE RATIO 18.5 (14-18); CALCIUM 8.4 mg/dL (8.5-10.1); CREATININE 1.3 mg/dL (0.55-1.02); EST CRCL DRUG DOSING (CG) 32.36 mL/min; POTASSIUM,K 3.3 mEq/L (3.5-5.1)
[2023-05-25 05:53] LABS: HEMATOCRIT 22.3 % (37.0-47.0); LYMPHOCYTES ABSOLUTE AUTO 0.3 K/mm3 (1.0-4.8); LYMPHOCYTES PERCENT AUTO 96.8 % (24.0-44.0); MEAN CORPUSCULAR HEMOGLOBIN 30.3 pg (28.0-32.0); MEAN CORPUSCULAR HGB CONC 35.9 g/dl (32.0-36.0); MEAN CORPUSCULAR VOLUME 84.5 fl (83.0-99.0); MEAN PLATELET VOLUME 11.7 fl (9.4-12.3); NEUTROPHILS PERCENT AUTO 3.2 % (41.0-71.0); RED BLOOD CELL COUNT 2.64 M/mm3 (4.10-5.30)
[2023-05-25 06:02] LABS: WHITE BLOOD CELL COUNT,WBC 0.31 K/mm3 (3.9-11.3)
[2023-05-25 06:03] LABS: PLATELET COUNT,PLT 22 K/mm3 (150-400)
[2023-05-25] MEDS: Sodium Chloride 0.9% 1,000 ML IV SCH (06:31)
[2023-05-25] MEDS: Levothyroxine 112 MCG Tab PO SCH (06:32)
[2023-05-25] MEDS: Levothyroxine 25 MCG Tab PO SCH (06:32)
[2023-05-25 06:35] LABS: SLIDE REVIEW ABNORMAL SMEAR
[2023-05-25] MEDS: Insulin Lispro 100 Unit/ML 3 ML KwikPen SUBCUT SCH ×7 (07:11→21:23)
[2023-05-25] MEDS: atorvaSTATin 40 MG Tab PO SCH (08:09)
[2023-05-25] MEDS: Sodium Bicarbonate 650 MG Tab PO SCH ×2 (08:09→21:21)
[2023-05-25] MEDS: Cholecalciferol (Vitamin D3) 25 MCG Tab PO SCH (08:09)
[2023-05-25] MEDS: Loperamide 2 MG Cap PO PRN ×2 (10:14→21:21)
[2023-05-25] MEDS ORDERED: cefTRIAXone 2 GM Vial ONE (12:33)
[2023-05-25] MEDS: Timolol Maleate 0.5% Ophth Soln 5 ML Bottle EYERT SCH (13:01)
[2023-05-25] MEDS: Torsemide 20 MG Tab PO SCH (13:01)
[2023-05-25] MEDS: cefTRIAXone 2 GM in Sodium Chloride 0.9% 100 ML IV SCH (13:01)
[2023-05-25] MEDS: Losartan 50 MG Tab PO SCH (13:04)
[2023-05-25] MEDS: REMDESIVIR 100 MG in Sodium Chloride 0.9% 250 ML IV SCH (15:16)
[2023-05-25] MEDS: Sodium Chloride 0.9% 10 ML Syringe IV SCH (16:20)
[2023-05-25] MEDS: Insulin Glargine,Human Rec. Analog 100 Units/ML 3 ML Pen SUBCUT SCH (21:22)
[2023-05-26 04:59] LABS: CALCIUM 8.3 mg/dL (8.5-10.1); CREATININE 1.2 mg/dL (0.55-1.02); EST CRCL DRUG DOSING (CG) 35.05 mL/min
[2023-05-26 06:08] LABS: HEMATOCRIT 23.4 % (37.0-47.0); HEMOGLOBIN 8.2 gm/dl (12.0-16.0); LYMPHOCYTES ABSOLUTE AUTO 0.5 K/mm3 (1.0-4.8); LYMPHOCYTES PERCENT AUTO 96.3 % (24.0-44.0); MEAN CORPUSCULAR HEMOGLOBIN 30.3 pg (28.0-32.0); MEAN CORPUSCULAR VOLUME 86.3 fl (83.0-99.0); MEAN PLATELET VOLUME 10.7 fl (9.4-12.3); MONOCYTES PERCENT AUTO 3.7 % (0.0-8.0); RED BLOOD CELL COUNT 2.71 M/mm3 (4.10-5.30)
[2023-05-26 06:40] LABS: PLATELET COUNT,PLT 15 K/mm3 (150-400); WHITE BLOOD CELL COUNT,WBC 0.54 K/mm3 (3.9-11.3)
[2023-05-26] MEDS: Levothyroxine 25 MCG Tab PO SCH (06:57)
[2023-05-26] MEDS: Levothyroxine 112 MCG Tab PO SCH (06:57)
[2023-05-26] MEDS: Insulin Lispro 100 Unit/ML 3 ML KwikPen SUBCUT SCH ×7 (07:17→21:26)
[2023-05-26 07:33] LABS: SLIDE REVIEW ABNORMAL SMEAR
[2023-05-26] MEDS: Timolol Maleate 0.5% Ophth Soln 5 ML Bottle EYERT SCH (07:59)
[2023-05-26] MEDS: atorvaSTATin 40 MG Tab PO SCH (08:00)
[2023-05-26] MEDS: Cholecalciferol (Vitamin D3) 25 MCG Tab PO SCH (08:00)
[2023-05-26] MEDS: Torsemide 20 MG Tab PO SCH (08:01)
[2023-05-26] MEDS: Losartan 50 MG Tab PO SCH (08:01)
[2023-05-26] MEDS: Sodium Bicarbonate 650 MG Tab PO SCH ×2 (08:06→21:14)
[2023-05-26] MEDS ORDERED: Potassium Chloride 10 MEQ Tab.ER PO ONE ×2 (09:31→12:00)
[2023-05-26] MEDS ORDERED: Potassium Chloride 20 MEQ Tab.ER PO ONE ×2 (09:31→12:00)
[2023-05-26] MEDS ORDERED: Potassium Chloride 10 MEQ in Premix Bag 1 BAG IV ONE (09:32)
[2023-05-26] MEDS ORDERED: Sodium Chloride 0.9% 100 ML IV SCH (12:00)
[2023-05-26] MEDS: cefTRIAXone 2 GM in Sodium Chloride 0.9% 100 ML IV SCH (13:29)
[2023-05-26] MEDS: Loperamide 2 MG Cap PO PRN (21:14)
[2023-05-26] MEDS: Insulin Glargine,Human Rec. Analog 100 Units/ML 3 ML Pen SUBCUT SCH (21:21)
[2023-05-26] MEDS: methylPREDNISolone Sodium Succinate 40 MG/1 ML SDV IVPUSH ONE (23:10)
[2023-05-27] MEDS: Levothyroxine 112 MCG Tab PO SCH (08:00)
[2023-05-27] MEDS: Insulin Lispro 100 Unit/ML 3 ML KwikPen SUBCUT SCH ×7 (08:01→20:53)
[2023-05-27] MEDS: Sodium Bicarbonate 650 MG Tab PO SCH ×2 (08:03→20:54)
[2023-05-27] MEDS: Torsemide 20 MG Tab PO SCH (08:03)
[2023-05-27] MEDS: atorvaSTATin 40 MG Tab PO SCH (08:03)
[2023-05-27] MEDS: Cholecalciferol (Vitamin D3) 25 MCG Tab PO SCH (08:03)
[2023-05-27] MEDS: Levothyroxine 25 MCG Tab PO SCH (08:03)
[2023-05-27] MEDS: Timolol Maleate 0.5% Ophth Soln 5 ML Bottle EYERT SCH (08:04)
[2023-05-27] MEDS: Losartan 50 MG Tab PO SCH (08:04)
[2023-05-27 10:00] LABS: HEMATOCRIT 21.9 % (37.0-47.0); HEMOGLOBIN 7.6 gm/dl (12.0-16.0); LYMPHOCYTES ABSOLUTE AUTO 0.5 K/mm3 (1.0-4.8); LYMPHOCYTES PERCENT AUTO 92.7 % (24.0-44.0); MEAN CORPUSCULAR HEMOGLOBIN 30.3 pg (28.0-32.0); MEAN CORPUSCULAR HGB CONC 34.7 g/dl (32.0-36.0); MEAN CORPUSCULAR VOLUME 87.3 fl (83.0-99.0); MEAN PLATELET VOLUME 9.9 fl (9.4-12.3); MONOCYTES PERCENT AUTO 5.5 % (0.0-8.0); NEUTROPHILS PERCENT AUTO 1.8 % (41.0-71.0); RED BLOOD CELL COUNT 2.51 M/mm3 (4.10-5.30)
[2023-05-27 10:13] LABS: PLATELET COUNT,PLT 7 K/mm3 (150-400); WHITE BLOOD CELL COUNT,WBC 0.55 K/mm3 (3.9-11.3)
[2023-05-27 10:18] LABS: BUN/CREATININE RATIO 21.4 (14-18); CALCIUM 8.5 mg/dL (8.5-10.1); CREATININE 1.4 mg/dL (0.55-1.02); EST CRCL DRUG DOSING (CG) 30.05 mL/min
[2023-05-27] MEDS: Loperamide 2 MG Cap PO PRN ×2 (10:44→20:54)
[2023-05-27 10:46] LABS: SLIDE REVIEW ABNORMAL SMEAR
[2023-05-27] MEDS ORDERED: methylPREDNISolone Sodium Succinate 40 MG/1 ML SDV IVPUSH ONE (11:30)
[2023-05-27] MEDS ORDERED: Famotidine 20 MG Tab PO ONE (11:30)
[2023-05-27] MEDS: Acetaminophen 325 MG Tab PO PRN (11:34)
[2023-05-27] MEDS: methylPREDNISolone Sodium Succinate 40 MG/1 ML SDV IVPUSH ONE (11:34)
[2023-05-27] MEDS: cefTRIAXone 2 GM in Sodium Chloride 0.9% 100 ML IV SCH (13:26)
[2023-05-27] MEDS: Insulin Glargine,Human Rec. Analog 100 Units/ML 3 ML Pen SUBCUT SCH (20:53)
[2023-05-28 05:36] LABS: HEMATOCRIT 21.6 % (37.0-47.0); LYMPHOCYTES ABSOLUTE AUTO 0.8 K/mm3 (1.0-4.8); LYMPHOCYTES PERCENT AUTO 94.1 % (24.0-44.0); MEAN CORPUSCULAR HEMOGLOBIN 29.2 pg (28.0-32.0); MEAN CORPUSCULAR HGB CONC 34.3 g/dl (32.0-36.0); MEAN CORPUSCULAR VOLUME 85.4 fl (83.0-99.0); MEAN PLATELET VOLUME 11.1 fl (9.4-12.3); MONOCYTES PERCENT AUTO 4.7 % (0.0-8.0); NEUTROPHILS PERCENT AUTO 1.2 % (41.0-71.0); PLATELET COUNT,PLT 37 K/mm3 (150-400); RED BLOOD CELL COUNT 2.53 M/mm3 (4.10-5.30)
[2023-05-28] MEDS: Levothyroxine 25 MCG Tab PO SCH (05:44)
[2023-05-28] MEDS: Levothyroxine 112 MCG Tab PO SCH (05:45)
[2023-05-28] MEDS: Loperamide 2 MG Cap PO PRN (05:47)
[2023-05-28 05:54] LABS: HEMOGLOBIN 7.4 gm/dl (12.0-16.0); WHITE BLOOD CELL COUNT,WBC 0.85 K/mm3 (3.9-11.3)
[2023-05-28 05:58] LABS: ANION GAP 14.5 (5-15); CALCIUM 8.8 mg/dL (8.5-10.1); CREATININE 1.3 mg/dL (0.55-1.02); EST CRCL DRUG DOSING (CG) 31.88 mL/min; POTASSIUM,K 3.5 mEq/L (3.5-5.1)
[2023-05-28 06:28] LABS: SLIDE REVIEW ABNORMAL SMEAR
[2023-05-28] MEDS: Torsemide 20 MG Tab PO SCH (08:06)
[2023-05-28] MEDS: Sodium Bicarbonate 650 MG Tab PO SCH ×2 (08:08→20:20)
[2023-05-28] MEDS: atorvaSTATin 40 MG Tab PO SCH (08:08)
[2023-05-28] MEDS: Losartan 50 MG Tab PO SCH (08:08)
[2023-05-28] MEDS: Cholecalciferol (Vitamin D3) 25 MCG Tab PO SCH (08:09)
[2023-05-28] MEDS: Timolol Maleate 0.5% Ophth Soln 5 ML Bottle EYERT SCH (08:10)
[2023-05-28] MEDS: Insulin Lispro 100 Unit/ML 3 ML KwikPen SUBCUT SCH ×7 (08:11→20:21)
[2023-05-28] MEDS: Hydrochlorothiazide 12.5 MG Cap PO SCH (10:10)
[2023-05-28] MEDS: cefTRIAXone 2 GM in Sodium Chloride 0.9% 100 ML IV SCH (12:48)
[2023-05-28] MEDS: Insulin Glargine,Human Rec. Analog 100 Units/ML 3 ML Pen SUBCUT SCH (20:22)
[2023-05-29 05:34] LABS: HEMATOCRIT 21.7 % (37.0-47.0); HEMOGLOBIN 7.5 gm/dl (12.0-16.0); LYMPHOCYTES ABSOLUTE AUTO 0.8 K/mm3 (1.0-4.8); LYMPHOCYTES PERCENT AUTO 96.2 % (24.0-44.0); MEAN CORPUSCULAR HEMOGLOBIN 30.5 pg (28.0-32.0); MEAN CORPUSCULAR HGB CONC 34.6 g/dl (32.0-36.0); MEAN CORPUSCULAR VOLUME 88.2 fl (83.0-99.0); MEAN PLATELET VOLUME 10.9 fl (9.4-12.3); MONOCYTES PERCENT AUTO 2.6 % (0.0-8.0); NEUTROPHILS PERCENT AUTO 1.2 % (41.0-71.0); RED BLOOD CELL COUNT 2.46 M/mm3 (4.10-5.30)
[2023-05-29 05:41] LABS: PLATELET COUNT,PLT 21 K/mm3 (150-400); WHITE BLOOD CELL COUNT,WBC 0.78 K/mm3 (3.9-11.3)
[2023-05-29 05:43] LABS: ANION GAP 13.1 (5-15); BUN/CREATININE RATIO 25.7 (14-18); CALCIUM 8.7 mg/dL (8.5-10.1); CREATININE 1.4 mg/dL (0.55-1.02); EST CRCL DRUG DOSING (CG) 29.6 mL/min; POTASSIUM,K 4.1 mEq/L (3.5-5.1)
[2023-05-29 06:17] LABS: SLIDE REVIEW ABNORMAL SMEAR
[2023-05-29] MEDS: Levothyroxine 25 MCG Tab PO SCH (06:25)
[2023-05-29] MEDS: Levothyroxine 112 MCG Tab PO SCH (06:25)
[2023-05-29] MEDS: Insulin Lispro 100 Unit/ML 3 ML KwikPen SUBCUT SCH ×7 (08:18→21:00)
[2023-05-29] MEDS: Sodium Bicarbonate 650 MG Tab PO SCH ×2 (08:19→20:59)
[2023-05-29] MEDS: Torsemide 20 MG Tab PO SCH (08:19)
[2023-05-29] MEDS: Losartan 50 MG Tab PO SCH (08:20)
[2023-05-29] MEDS: atorvaSTATin 40 MG Tab PO SCH (08:21)
[2023-05-29] MEDS: Cholecalciferol (Vitamin D3) 25 MCG Tab PO SCH (08:21)
[2023-05-29] MEDS: Timolol Maleate 0.5% Ophth Soln 5 ML Bottle EYERT SCH (08:22)
[2023-05-29] MEDS: Hydrochlorothiazide 12.5 MG Cap PO SCH (08:22)
[2023-05-29] MEDS: cefTRIAXone 2 GM in Sodium Chloride 0.9% 100 ML IV SCH (13:54)
[2023-05-29] MEDS: Loperamide 2 MG Cap PO PRN ×2 (14:30→21:15)
[2023-05-29] MEDS: Insulin Glargine,Human Rec. Analog 100 Units/ML 3 ML Pen SUBCUT SCH (20:59)
[2023-05-30 05:32] LABS: HEMATOCRIT 21.2 % (37.0-47.0); LYMPHOCYTES ABSOLUTE AUTO 0.9 K/mm3 (1.0-4.8); LYMPHOCYTES PERCENT AUTO 97.8 % (24.0-44.0); MEAN CORPUSCULAR HEMOGLOBIN 30.3 pg (28.0-32.0); MEAN CORPUSCULAR HGB CONC 34.4 g/dl (32.0-36.0); MONOCYTES PERCENT AUTO 1.1 % (0.0-8.0); NEUTROPHILS PERCENT AUTO 1.1 % (41.0-71.0); RED BLOOD CELL COUNT 2.41 M/mm3 (4.10-5.30)
[2023-05-30 05:39] LABS: BUN/CREATININE RATIO 23.6 (14-18); CALCIUM 8.5 mg/dL (8.5-10.1); CREATININE 1.4 mg/dL (0.55-1.02); EST CRCL DRUG DOSING (CG) 29.6 mL/min
[2023-05-30 05:48] LABS: WHITE BLOOD CELL COUNT,WBC 0.92 K/mm3 (3.9-11.3)
[2023-05-30 05:49] LABS: HEMOGLOBIN 7.3 gm/dl (12.0-16.0); PLATELET COUNT,PLT 15 K/mm3 (150-400)
[2023-05-30] MEDS: Levothyroxine 25 MCG Tab PO SCH (06:12)
[2023-05-30] MEDS: Levothyroxine 112 MCG Tab PO SCH (06:12)
[2023-05-30 06:18] LABS: SLIDE REVIEW ABNORMAL SMEAR
[2023-05-30] MEDS: Insulin Lispro 100 Unit/ML 3 ML KwikPen SUBCUT SCH ×4 (07:47→11:34)
[2023-05-30] MEDS: Timolol Maleate 0.5% Ophth Soln 5 ML Bottle EYERT SCH (08:41)
[2023-05-30] MEDS: Torsemide 20 MG Tab PO SCH (08:41)
[2023-05-30] MEDS: Hydrochlorothiazide 12.5 MG Cap PO SCH (08:42)
[2023-05-30] MEDS: atorvaSTATin 40 MG Tab PO SCH (08:42)
[2023-05-30] MEDS: Losartan 50 MG Tab PO SCH (08:42)
[2023-05-30] MEDS: Sodium Bicarbonate 650 MG Tab PO SCH (08:42)
[2023-05-30] MEDS: Cholecalciferol (Vitamin D3) 25 MCG Tab PO SCH (08:43)
[2023-05-31] MEDS ORDERED: Hydrochlorothiazide 25 MG Tab PO SCH (09:00)
== END 2023-05-30 14:00 | disposition home or self-care (01) | DRG 808 ==
LOC: JD.ED 18:48 → JD.MS 20:31
PROVIDERS: ADMIT Student in an Organized Health Care Education/Training Program; ATTEND Student in an Organized Health Care Education/Training Program
PROC: 8E0ZXY6 Isolation (ICD-10-PCS; principal; 2023-05-22)
PROC: XW033E5 Introduction of Remdesivir Anti-infective into Peripheral Vein, Percutaneous Approach, New Technology Group 5 (ICD-10-PCS; 2023-05-22)
PROC: 30233R1 Transfusion of Nonautologous Platelets into Peripheral Vein, Percutaneous Approach (ICD-10-PCS; 2023-05-23)
PROC: 30233N1 Transfusion of Nonautologous Red Blood Cells into Peripheral Vein, Percutaneous Approach (ICD-10-PCS; 2023-05-25)
PROC: 30233R1 Transfusion of Nonautologous Platelets into Peripheral Vein, Percutaneous Approach (ICD-10-PCS; 2023-05-27)
DX: D70.1 Agranulocytosis secondary to cancer chemotherapy (principal); R55 Syncope and collapse; R50.9 Fever, unspecified; J18.9 Pneumonia, unspecified organism; U07.1 COVID-19; Z51.12 Encounter for antineoplastic immunotherapy; D84.9 Immunodeficiency, unspecified; I11.0 Hypertensive heart disease with heart failure; I50.9 Heart failure, unspecified; Z94.81 Bone marrow transplant status; C95.91 Leukemia, unspecified, in remission; N17.9 Acute kidney failure, unspecified; Q21.12 Patent foramen ovale; D46.9 Myelodysplastic syndrome, unspecified; T45.1X5A Adverse effect of antineoplastic and immunosuppressive drugs, initial encounter; M06.9 Rheumatoid arthritis, unspecified; E78.00 Pure hypercholesterolemia, unspecified; K21.9 Gastro-esophageal reflux disease without esophagitis; F41.9 Anxiety disorder, unspecified; F32.A Depression, unspecified; E03.9 Hypothyroidism, unspecified; D69.6 Thrombocytopenia, unspecified; E86.9 Volume depletion, unspecified; N30.90 Cystitis, unspecified without hematuria; N18.30 Chronic kidney disease, stage 3 unspecified; I12.9 Hypertensive chronic kidney disease with stage 1 through stage 4 chronic kidney disease, or unspecified chronic kidney disease; E11.9 Type 2 diabetes mellitus without complications; I08.0 Rheumatic disorders of both mitral and aortic valves; Z88.1 Allergy status to other antibiotic agents; Z88.8 Allergy status to other drugs, medicaments and biological substances; Z79.4 Long term (current) use of insulin; Z79.899 Other long term (current) drug therapy; Z79.2 Long term (current) use of antibiotics; Z90.89 Acquired absence of other organs; Z98.51 Tubal ligation status; Z98.890 Other specified postprocedural states
CPT/HCPCS: 0241U; 36415; 36430; 71045; 71250; 74176; 80048; 80053; 80202; 81001; 82947; 83036; 83605; 83735; 83880; 84443; 84484; 84550; 85007; 85025; 85027; 85049; 85610; 85652; 85730; 86140; 86850; 86900; 86901; 86922; 87040; 87077; 87086; 87154; 87186; 93005; 93306; 94760; 96361; 96374; 96375; 97161; 99285; 93010; A9270-GY; J0248; J0696; J1447; J1815; J1815-GY; J2543; J2765; J2920; J3370; J3475; J3480; J3490; J7030; J7050; P9034; P9040